=== PATIENT | female | born 1995 | race Two or more races ===

== ENCOUNTER 2021-09-17 14:00 | Emergency (ER) | payer MEDICAID, OTHER ==
[~2021-09-17] VITALS: Ht 170.2 cm; Wt 66.7 kg
[2021-09-17 14:01] VITALS: BP 120/82
== END 2021-09-17 16:55 | disposition home or self-care (01) ==
LOC: ER 14:00
DX: G44.40 Drug-induced headache, not elsewhere classified, not intractable (principal)